=== PATIENT | female | born 1965 | race Hispanic/Latino ===

== ENCOUNTER 2018-04-14 10:34 | Outpatient (CLI) | payer BC | END 2018-04-14 10:35 | disposition home or self-care (01) | LOC: BICMAMMO 10:34 | PROVIDERS: ATTEND Family Medicine | DX: Z12.31 Encounter for screening mammogram for malignant neoplasm of breast (principal); R92.1 Mammographic calcification found on diagnostic imaging of breast | CPT/HCPCS: 77063; 77067 ==

== ENCOUNTER 2019-03-22 08:58 | Outpatient (CLI) | payer BC ==
[2019-03-22] MEDS ORDERED: Iopamidol 370 76% 100 ML VIAL ONE (11:01)
--- NOTE | 2019-03-22 11:27 | CT ---
CT ABDOMEN AND PELVIS WITH ORAL AND IV CONTRAST: HISTORY: Generalized abdominal pain, right lower quadrant pain. FINDINGS: The lung bases are clear. The patient is post cholecystectomy. The liver demonstrates diffuse echog enicity compared to the spleen consistent with fatty infiltration. No hepatic mass or abnormal bilia ry ductal dilatation is seen. The spleen, adrenal glands, and kidneys are normal. There is a 5 x 2 cm area of decreased attenuation in the body of the pancreas suspicious for mass. A 15 mm periportal lymph node is seen. No free air, free fluid, or periaortic lymphadenopathy is seen. The small bowel loops are not abnormally dilated. A normal-appearing appendix is seen. There is fec al material in the colon. There is sigmoid diverticulosis. Uterus is present. There is a fat-containing 4.5 cm right adnexal mass consistent with ovarian dermo id. There is a fat-containing umbilical hernia. There are vascular calcifications without evidence of aneurysmal dilatation of the abdominal aorta. There are degenerative changes in the spine. IMPRESSION: 1. Fatty liver. 2. Findings suspicious for pancreatic mass. This should be evaluated with endoscopic ultrasound. 3. No evidence of appendicitis. 4. Sigmoid diverticulosis. 5. Umbilical wall hernia. 6. A 4.5 cm right ovarian dermoid. POS: OFF
== END 2019-03-22 08:59 | disposition home or self-care (01) ==
LOC: CT 08:58
PROVIDERS: ATTEND Family Medicine
DX: R10.84 Generalized abdominal pain (principal); K76.0 Fatty (change of) liver, not elsewhere classified; K57.30 Diverticulosis of large intestine without perforation or abscess without bleeding; K42.9 Umbilical hernia without obstruction or gangrene; D27.0 Benign neoplasm of right ovary
CPT/HCPCS: 74177; Q9967

== ENCOUNTER 2019-04-21 08:43 | Outpatient (CLI) | payer BC ==
--- NOTE | 2019-04-21 09:19 | MMO ---
Bilateral MAMMO Bilat Screen [facility]. CLINICAL HISTORY: Patient is 53 years old and is seen for screening. The patient has the following family history of breast cancer: niece. The patient has no personal history of cancer. VIEWS: The views performed were: bilateral craniocaudal with tomosynthesis and bilateral mediolateral oblique with tomosynthesis. FILMS COMPARED: The present examination has been compared to a prior imaging study performed at [facility] on 04/14/2018. MAMMOGRAM FINDINGS: The breasts are almost entirely fat. There are no suspicious masses, suspicious calcifications, or new areas of architectural distortion. IMPRESSION: THERE IS NO MAMMOGRAPHIC EVIDENCE OF MALIGNANCY. A ROUTINE FOLLOW-UP MAMMOGRAM IN 1 YEAR IS RECOMMENDED. THE RESULTS OF THIS EXAM WERE SENT TO THE PATIENT. ACR BI-RADS Category 1 - Negative MAMMOGRAPHY NOTE: 1. A negative mammogram report should not delay a biopsy if a dominant of clinically suspicious mass is present. 2. Approximately 10% to 15% of breast cancers are not detected by mammography. 3. Adenosis and dense breasts may obscure an underlying neoplasm.
== END 2019-04-21 08:44 | disposition home or self-care (01) ==
LOC: BICMAMMO 08:43
PROVIDERS: ATTEND Family Medicine
DX: Z12.31 Encounter for screening mammogram for malignant neoplasm of breast (principal); Z80.3 Family history of malignant neoplasm of breast
CPT/HCPCS: 77063; 77067